=== PATIENT | male | born 1975 | race Caucasian/White ===

== ENCOUNTER 2025-05-29 10:08 | Emergency (ER) | payer OTHER, SELFPAY ==
[2025-05-29 10:14] VITALS: BP 162/96
[2025-05-29 11:06] VITALS: BP 137/92
[2025-05-29 11:14] VITALS: BMI 25.8
--- NOTE | 2025-05-29 11:14 | ED.GENMED ---
History of Present Illness
General
Chief Complaint: Chest Pain
Source: patient
Exam Limitations: none
Time Seen by Provider: 05/29/25 10:58
History of Present Illness
History of Present Illness:
49-year-old otherwise healthy male presents with the onset of chest discomfort starting this morning. Hurts to move and take a deep breath. No known injury. No fever or cough. No hemoptysis. He does note recent travel to [place] in April. No
leg swelling or calf pain. Several months ago he states he had a tick on him that was removed without any rash or other episodes. He does admit to having intermittent aches and pains over the past several months. He has been using an
anti-inflammatory without any significant relief
Phy Exam
Physical Exam
Physical Exam:
General: Well-appearing male no acute respiratory distress
HEENT normal cephalic atraumatic
Heart: Regular rate and rhythm
Lungs: Clear no wheeze
Musculoskeletal exam: The pain over the chest is not reproducible to the touch but is reproducible to move the left arm.
Abdomen is soft nontender
Extremities: No cyanosis
Scores
Heart Score for Chest Pain Patients
STEMI patient?: No
History: Slightly or Non-Suspicious
ECG: Normal
Age: >45 - <65 years
Risk Factors: No Risk Factors
Troponin: </= Normal Limit
Heart Score for Chest Pain Patients: 1
Heart Score Risk: 2.5% MACE over next 6 weeks
Course
Orders/Labs/Results
Orders:
Orders
05/29/25 10:08
EKG [Electrocardiogram (*1)] Urgent
Reason for Study: Chest Pain
EKG- Treatment ONCE
05/29/25 11:15
CRP [C-Reactive Protein] Urgent
Complete Blood Count/With Diff Urgent
Comprehensive Metabolic Panel Urgent
D-Dimer Urgent
Sed Rate [Erythrocyte Sed Rate] Urgent
Troponin I Urgent
05/29/25 12:15
CR Chest - 2 Views Urgent
Comment:
Reason For Exam: chest pain
05/29/25 13:18
Lyme Progressive Urgent
Troponin I Urgent
05/29/25 13:30
EKG [Electrocardiogram (*1)] Urgent
Reason for Study: Chest Pain
05/29/25 13:31
EKG- Treatment ONCE
Abnormal Lab Results
05/29/25
11:15
MPV 10.9 H fL
(7.4-10.4)
BUN 24 H mg/dl
(9-20)
ALT 64 H U/L
(0-50)
05/29/25 11:15
05/29/25 11:15
Vital Signs
Initial and Last Documented VS:
Initial Vital Signs
Temp Pulse Resp BP Pulse Ox
98.2 F 70 16 162/96 98
05/29/25 10:14 05/29/25 10:14 05/29/25 10:14 05/29/25 10:14 05/29/25 10:14
Last Documented Vital Signs
Temp Pulse Resp BP Pulse Ox
98.2 F 52 18 119/77 97
05/29/25 10:14 05/29/25 13:30 05/29/25 13:30 05/29/25 13:02 05/29/25 13:30
MDM/Problems Addressed
Differential Diagnosis Includes:
Chest pain. The pain is pleuritic and made worse with motion. Consider chest wall or musculoskeletal comfort versus PE versus less likely ACS. D-dimer and troponin pending. EKG through triage shows sinus rhythm without ischemic changes.
*Pulse Oximetry
SaO2: 98
Oxygen Mode of Delivery: Room air
Patient hypoxic: no
*Critical Care Note
Total Time (30-74mins, 75-104mins- exclusive of procedures): Not Applicable
Update Note
Update Note:
Initial and repeat troponin both either within normal limits or undetectable. D-dimer negative sed rate and CRP negative. Chest x-ray normal. Pain is reproducible with breathing and motion I suspect tensional chest wall discomfort versus
costochondritis. Recommended continued use of anti-inflammatories. Will refer to cardiology for chest pain follow-up as an outpatient
ED Attending Note
-
Portions of this chart may have been created with voice recognition software.� Occasional wrong word or��sound alike� substitutions may have occurred due to the inherent limitations of voice recognition software.
Discharge Plan
Departure
Patient Disposition: Home (Routine Discharge)
Date of Disposition: 05/29/25
Time of Disposition: 14:21
Patient with high blood pressure during this ER visit?: No
Discharge Problem:
Chest pain
Instructions: Chest Pain DCA Follow Up
Referrals:
Dg Gerard, [Family Provider, Family Practice]
Activity Restrictions/Additional Instructions:
Continue with NSAIDs as needed for pain. Return if worse, otherwise follow up with cardiology.
Interventions
Interventions:
*Risk Screen - Suicide Last Done: 05/29/25 12:32
*General Assessment Last Done: 05/29/25 11:16
*Neglect/Abuse Screening Last Done: 05/29/25 12:32
*ED- Fall Risk Assessment Last Done: 05/29/25 11:16
*ED COVID-19 Vaccine History Last Done: 05/29/25 11:16
ED- Cardiac Assessment Last Done: 05/29/25 11:16
Discharge Date and Time
Print Language: AUSTRALIAN
[2025-05-29 11:22] LABS: Hematocrit 44.6 % (39.0-52.0); Hemoglobin 15.8 g/dL (13.0-18.0); Mean Corp Hgb Conc. 35.4 g/dL (33.0-37.0); Mean Corpuscular Volume 83.2 fL (80.0-94.0); Nucleated Red Blood Cells % 0 % (-); Platelet Count 189 10^3/uL (130-400); Red Cell Dist. Width 12.2 % (11.5-14.5)
[2025-05-29 11:35] LABS: D-Dimer < 0.27 ug/mlFEU (0.00-0.50)
[2025-05-29 11:49] LABS: Troponin I 0.020 ng/ml
[2025-05-29 12:00] VITALS: BP 111/76
[2025-05-29 12:01] LABS: ALT (SGPT) 64 U/L (0-50); AST (SGOT) 45 U/L (17-59); Albumin 4.7 g/dl (3.5-5.0); Alkaline Phosphatase 40 U/L (38-126); Blood Urea Nitrogen 24 mg/dl (9-20); Calcium 9.3 mg/dl (8.4-10.2); Carbon Dioxide 24 mmol/L (22-30); Chloride 106 mmol/L (98-107); Estimated Creatinine Clearance 96 ml/min; Glucose 90 mg/dl (70-99); Potassium 4.5 mmol/L (3.5-5.1); Sodium 138 mmol/L (135-145); Total Protein 7.1 g/dl (6.3-8.2); eGFR > 60.00
[2025-05-29 12:03] LABS: C-Reactive Protein < 5.00 mg/L (0.0-10.00)
[2025-05-29 13:02] VITALS: BP 119/77
[2025-05-29 14:00] VITALS: BP 115/77
[2025-05-29 14:10] LABS: Troponin I < 0.012 ng/ml
[2025-05-31 13:02] LABS: Lyme Antibody Screen, EIA Negative (Negative)
== END 2025-05-29 14:33 | disposition home or self-care (01) ==
LOC: EMR 10:08
PROVIDERS: Physician Assistant; EMERGENCY PHYSICIAN Emergency Medicine; FAMILY PHYSICIAN Family Medicine
DX: R07.89 Other chest pain (principal)
CPT/HCPCS: 99285; 71046; 80053; 84484; 85025; 85379; 85652; 86140; 86618; 93005